=== PATIENT | male | born 1965 | race African-American/Black ===

== ENCOUNTER 2016-07-26 23:12 | Emergency (ER) | payer MEDICAID ==
[~2016-07-26] VITALS: Ht 188 cm; Wt 104.3 kg
[2016-07-26 23:20] VITALS: BP 135/98
== END 2016-07-27 00:09 | disposition left against medical advice (07) ==
LOC: ER 23:12
DX: F41.9 Anxiety disorder, unspecified (principal); Z53.21 Procedure and treatment not carried out due to patient leaving prior to being seen by health care provider

== ENCOUNTER 2024-08-30 12:37 | Emergency (ER) | payer MEDICAID ==
[~2024-08-30] VITALS: Ht 190.5 cm; Wt 102.3 kg
[2024-08-30 12:54] VITALS: BP 147/87; TEMP 98.3
[2024-08-30] MEDS: HYDROcodone-ACET 10/325MG TAB PO ONE (13:15)
--- NOTE | 2024-08-30 13:19 | ED.PDOC ---
Musculoskeletal HPI Comments 59y M who presents to the ED for chief complaint of fall injury. Pt states he was at [employer] and states while standing at counter, pt noticed some sand or debris on the floor and states he fell to the floor. Pt states he fell backwards and states he did hit the back of his head, with no noted loss of consciousness. Pt states he also noted pain by his R wrist but has noted ability to move all extremities. Chief Complaint: Fall Injury Time Seen by MD: 13:08 Primary Care Provider: jennie Prater Notes: Nurses Notes, Medications, Allergies Allergies: Coded Allergies: NO KNOWN ALLERGIES (Unverified , 09/28/14) Information Source: Patient Mode of Arrival: Wheelchair Brought in by: spouse Location: Right Extremity Location: Back, Hand Timing: Minutes, Hours Prehospital treatment: None Severity: Moderate Able to Move Extremity: Yes Bear Weight: Fully Pain: Moderate Mechanism: Spontaneous Circumstances: Fall Onset of Symptoms: Spontaneous Symptoms: Pain DVT Risk Factors: NONE Last Tetanus: Unknown Associated signs and symptoms: Wrist pain, Back pain Past Medical History PAST MEDICAL HISTORY: Arthritis Surgical History: Denies all surgeries Family History Family History: Reviewed,noncontributory to illness Social History Smoker: Non-Smoker Alcohol: Denies ETOH Use Drugs: Denies Drug Use Lives In: Home Constitutional: denies: chills, diaphoresis, fatigue, fever, malaise, sweats, weakness, others EENTM: denies: blurred vision, double vision, ear bleeding, ear discharge, ear drainage, ear pain, ear ringing, eye pain, eye redness, hearing loss, mouth pain, mouth swelling, nasal discharge, nose bleeding, nose congestion, nose pain, photophobia, tearing, throat pain, throat swelling, voice changes, others Respiratory: denies: cough, hemoptysis, orthopnea, SOB at rest, shortness of breath, SOB with excertion, stridor, wheezing, others Cardiovascular: denies: chest pain, dizzy spells, diaphoresis, Dyspnea on exertion, edema, irregular heart beat, left arm pain, lightheadedness, palpitations, PND, syncope, others Gastrointestinal: denies: abdomen distended, abdominal pain, blood streaked bowels, constipated, diarrhea, dysphagia, difficulty swallowing, hematemesis, melena, nausea, poor appetite, poor fluid intake, rectal bleeding, rectal pain, vomiting, others Genitourinary: denies: burning, dysuria, flank pain, frequency, hematuria, incontinence, penile discharge, penile sore, pain, testicle pain, testicle swelling, urgency, others Neurological: denies: dizziness, fainting, headache, left sided numbness, left sided weakness, numbness, paresthesia, pre-existing deficit, right sided numbness, right sided weakness, seizure, speech problems, tingling, tremors, weakness, others Musculoskeletal: reports: back pain, joint swelling (R wrist); denies: gout, joint pain, muscle pain, muscle stiffness, neck pain, others Integumetry: denies: bruises, change in color, change in hair/nails, dryness, laceration, lesions, lumps, rash, wounds, others Allergic/Immunocompromised: denies: Difficulty Healing, Frequent Infections, Hives, Itching, others Hematologic/Lymphatic: denies: anemia, blood clots, easy bleeding, easy bruising, swollen glands, others Endocrine: denies: excessive hunger, excessive sweating, excessive thirst, excessive urination, flushing, intolerance to cold, intolerance to heat, unexplained weight gain, unexplained weight loss, others Psychiatric: denies: anxiety, bipolar disorder, depression, hopeless, panic disorder, schizophrenia, sleepless, suicidal, others All Other Systems: Reviewed and Negative Physical Exam General Appearance: Mild Distress HEENT: Normal ENT Inspection, Pharynx Normal, TMs Normal Neck: Full Range of Motion, Non-Tender, Normal, Normal Inspection Respiratory: Chest Non-Tender, Lungs Clear, No Accessory Muscle Use, No Respiratory Distress, Normal Breath Sounds Cardiovascular: No Edema, No JVD, No Murmur, No Gallop, Normal Peripheral Pulses, Regular Rate/Rhythm Breast Exam: Deferred Gastrointestinal: No Organomegaly, Non Tender, No Pulsatile Mass, Normal Bowel Sounds, Soft Genitalia: Deferred Pelvic: Deferred Rectal: Deferred Extremities: No calf tenderness, Normal capillary refill, Normal inspection, Normal range of motion, Non-tender, No pedal edema Musculoskeletal : Location: Bilateral Extremity Location: Back Apperance: Tenderness: Mild Neurologic: Alert, clinical data abstractor II-XII nml as Tested, No Motor Deficits, Normal Affect, Normal Mood, No Sensory Deficits Cerebellar Function: Normal Reflexes: Normal Skin: Dry, Normal Color, Warm Lymphatic: No Adenopathy Was a procedure done? Was a procedure done?: No Differential Diagnosis EXT Differential Diagnosis: Fracture, Sprain, Contusion, Strain Other Differential Diagnosis lumbar radiculopathy, musculoskeletal pain X-Ray, Labs, Meds, VS Vital Signs Date Time Temp Pulse Resp B/P (MAP) Pulse Ox O2 Delivery O2 Flow Rate FiO2 08/30/24 13:56 77 18 98 Room Air 08/30/24 13:21 83 20 97 Room Air* 0 21 08/30/24 12:54 98.3 77 18 147/87 (107) 98 98.3 08/30/24 12:42 98.3 77 18 147/87 (107) 98 98.3 Current Medications Medications (Trade) Dose Ordered Sig/Will Route Start Time Stop Time Status Last Admin Acetaminophen/ Hydrocodone Bitart (Buchanan 10/325MG Tab) 1 tab ONCE ONCE PO 08/30/24 13:00 08/30/24 13:01 DC 08/30/24 13:15 CT LS SPINE WO CONTRAST IMPRESSION: No evidence of acute traumatic fractures . Chronic appearing Grade 1 anterolisthesis of L5 on S1. Severe bilateral neural foramina stenosis at L5-S1 with moderate bilateral neural foramina stenosis at L4-L5. TECHNIQUE: Axial imaging was obtained through the brain without contrast. IMPRESSION: No CT evidence of acute intracranial abnormality. At this time, the patient was given Buchanan here in the emergency department's At this time, the patient was being discharged The patient will follow up with the primary care doctor The patient will return to the emergency department's if the condition worsens Images Reviewed?: Images reviewed and evaluated by me Time of 1ST Reevaluation: 13:40 Reevaluation 1ST: Unchanged Time of 2ND Reevaluation: 15:23 Reevaluation 2ND: Improved Patient Education/Counseling: Diagnosis, Treatment, Prognosis, Need For Follow Up Family Education/Counseling: Diagnosis, Treatment, Prognosis, Need For Follow Up Additional Information -Reviewed patient's previous visit(s): - The following tests were ordered, and results were reviewed by me: CT head w/o contrast, LS spine w/o contrast, - Additional information was gathered from interviewing the following independent Historian: none - I reviewed and agreed with the following test results read by other provider: radiologist - I discussed treatments and results with medical personnel and: patient Comprehensive systems review obtained and negative except for what is stated in the HPI. Departure 1 Departure Time of Disposition: 15:23 Impression: Primary Impression: Blunt head trauma Qualified Codes: S09.8XXA - Other specified injuries of head, initial encounter Additional Impressions: History of fall Lumbar contusion Qualified Codes: S30.0XXA - Contusion of lower back and pelvis, initial encounter Disposition: HOME / SELF CARE / HOMELESS Condition: Fair Discharged With: Self, Significant Other Critical Care Note Critical Care Time?: No Stability Stability form required: No Heart Score Heart Score: Heart Score Response (Comments) Value History N/A 0 EKG N/A 0 Age N/A 0 Risk Factors N/A 0 Troponin N/A 0 Total 0 I personally scribed for AIDEN LOREDO MD ([email or web address]) on 08/30/24 at 13:19. Electronically submitted by Kaila Alcazar ([email or web address]). I personally scribed for AIDEN LOREDO MD ([email or web address]) on 08/30/24 at 14:41. Electronically submitted by Kaila Alcazar ([email or web address]). AIDEN LOREDO MD Aug 30, 2024 13:19
[2024-08-30 13:21] VITALS: PULSE 83; RESP 20; O2SAT 97
--- NOTE | 2024-08-30 13:54 | DVH ---
CLINICAL INFORMATION: 59 years old, Male; fall injury. TECHNIQUE: Axial imaging was obtained through the brain without contrast. Coronal and sagittal reform atted images were obtained, reviewed, and stored. Images were reviewed in brain and bone windows. Al l CT scans at this medical facility are performed using dose modulation techniques as appropriate to a performed exam including the following: Automated exposure control was utilized; adjustment of the MA and/or KV according to patient size; and use of iterative reconstruction technique. CTDIvol = 53.8 3 mGy DLP = 972.45 mGy-cm COMPARISON: None FINDINGS: There is no acute intracranial hemorrhage. No mass effect or midline shift. The ventricles and sulci are within normal limits in size for age. Basal cisterns are patent. The calvarium is unre markable. Paranasal sinuses and mastoid air cells are clear. IMPRESSION: No CT evidence of acute intracranial abnormality.
[2024-08-30 13:56] VITALS: PULSE 77; RESP 18; O2SAT 98
--- NOTE | 2024-08-30 14:28 | DVH ---
CT LS SPINE WO CONTRAST INDICATION: fall : 59 old Male fall EXAM DATE: 08/30/2024 12:38 PM COMPARISON: None RADIATION DOSE: CTDIvol: 53.83 mGy, DLP: 2009.1 mGy*cm Technique: Utilizing the CT scanner, contiguous axial scans were obtained through the lumbar spine. C oronal and sagittal reformatted images were then generated. All CT scans at this medical facility are performed using dose modulation techniques as appropriate t o a performed exam including the following: Automated exposure control was utilized; adjustment of th e MA and/or KV according to patient size; and use of iterative reconstruction technique. FINDINGS: 5 [id number] lumbar-type vertebrae. Straightening of the lumbar lordosis. The vertebral body hei ghts are maintained. Grade 1 anterolisthesis of 0 5 on S1 with severe degenerative changes at L5-S1. Sclerotic focus of the left iliac bone which represent a bone islands/blastic lesion. No evidence of acute traumatic fractures. Minimal posterior disc bulge at L3-L4, L4-L5 and L5-S1 without significant spinal canal stenosis. Mod erate bilateral neural foramina stenosis at L4-L5 with severe bilateral neural foramina stenosis at L 5-S1. The paraspinal muscles unremarkable. Mild rectal wall thickening which may be from inadequate distension.. IMPRESSION: No evidence of acute traumatic fractures . Chronic appearing Grade 1 anterolisthesis of L5 on S1. Severe bilateral neural foramina stenosis at L5-S1 with moderate bilateral neural foramina stenosis at L4-L5.
== END 2024-08-30 15:33 | disposition home or self-care (01) ==
LOC: ER 12:37
DX: S30.0XXA Contusion of lower back and pelvis, initial encounter (principal); S09.8XXA Other specified injuries of head, initial encounter; M19.90 Unspecified osteoarthritis, unspecified site; W18.39XA Other fall on same level, initial encounter; Y93.89 Activity, other specified; Y92.89 Other specified places as the place of occurrence of the external cause; Y99.8 Other external cause status
CPT/HCPCS: 70450; 72131